=== PATIENT | male | born 1945 ===

== ENCOUNTER 2017-10-21 16:00 | Emergency (ER) | payer MEDICARE ==
[2017-10-21 16:28] VITALS: BP 163/75; PULSE 56; RESP 18; TEMP 98; O2SAT 99
--- NOTE | 2017-10-21 16:54 | ED PDOC ---
Syncope/Near Syncope/Dizziness Time Seen by Provider: 10/21/17 16:43 Chief Complaint (Nursing): Dizziness/Lightheaded Chief Complaint (Provider): Dizziness/Lightheaded History Per: Patient History/Exam Limitations: no limitations Onset/Duration Of Symptoms: Days Current Symptoms Are (Timing): Still Present Activity At Onset Of Symptoms: Had Just Stood up Additional Complaint(s): 72 y/o male with a PMHx of HTN and Type II Diabetes presents to the ED complaining of dizziness, onset 12 hours ago. Patient states he feels dizzy when he moves his and and when getting out of bed. Patient reports he was seen and admitted to [facility] for the same symptoms on 10/12/2017. MRI done at [facility] showed no acute findings. Carotid Dopler also done at [facility] showed normal results. Patient was seen by Dr. Mehta there and recommended to take Meclizine. Denies fever and vomiting. PMD: NIHSS Stroke Scale - Date/Time Evaluation Performed Date Performed: 10/21/17 Past Medical History Reviewed: Historical Data, Nursing Documentation, Vital Signs Vital Signs: Last Vital Signs Temp 98.0 F 10/21/17 16:24 Pulse 56 L 10/21/17 16:24 Resp 18 10/21/17 16:24 BP 163/75 H 10/21/17 16:24 Pulse Ox 99 10/21/17 16:24 - Medical History PMH: COPD, Diabetes, HTN - Surgical History Surgical History: No Surg Hx - Family History Family History: States: Unknown Family Hx - Social History Current smoker - smoking cessation education provided: No Ex-Smoker (has not smoked in the last 12 months): Yes (2 years ago) Alcohol: None Drugs: Denies - Immunization History Hx Influenza Vaccination: No Hx Pneumococcal Vaccination: No - Home Medications Home Medications: Ambulatory Orders Medication Instructions Recorded Glipizide [Glipizide Xl] 10 mg PO BID 10/21/17 Meclizine [Meclizine*] 25 mg PO Q6 PRN #10 tab 10/21/17 MetFORMIN [glucoPHAGE] 1,000 mg PO BID 10/21/17 Citra-3 Fatty Acids/Fish Oil [Fish 1 cap PO BID 10/21/17 Oil 1,000 mg Capsule] Pioglitazone [Actos] 15 mg PO MWF 10/21/17 Pravastatin Sodium [Pravachol] 80 mg PO HS 10/21/17 Valsartan [Diovan] 80 mg PO DAILY 10/21/17 - Allergies Allergies/Adverse Reactions: Allergies Allergy/AdvReac Type Severity Reaction Status Date / Time Penicillins Allergy Verified 01/27/17 10:32 Review of Systems ROS Statement: Except As Marked, All Systems Reviewed And Found Negative Constitutional: Negative for: Fever Gastrointestinal: Negative for: Vomiting Neurological: Positive for: Dizziness Physical Exam - Reviewed Nursing Documentation Reviewed: Yes Vital Signs Reviewed: Yes - Physical Exam Appears: Positive for: No Acute Distress Head Exam: Positive for: ATRAUMATIC, NORMAL INSPECTION, NORMOCEPHALIC Skin: Positive for: Normal Color, Warm Eye Exam: Positive for: EOMI, Normal appearance, PERRL Neck: Positive for: Normal, Painless ROM Cardiovascular/Chest: Positive for: Regular Rate, Rhythm Respiratory: Positive for: CNT, Normal Breath Sounds Gastrointestinal/Abdominal: Positive for: Normal Exam, Soft. Negative for: Tenderness Back: Positive for: Normal Inspection Extremity: Positive for: Normal ROM. Negative for: Deformity Neurologic/Psych: Positive for: Alert, Oriented, Gait (unsteady). Negative for : Motor/Sensory Deficits - Laboratory Results Result Diagrams: 10/21/17 17:05 10/21/17 17:05 - ECG O2 Sat by Pulse Oximetry: 99 (RA) Pulse Ox Interpretation: Normal Medical Decision Making Medical Decision Making: Time: 1654 Plan: -- CT Head w/o Contrast -- CMP -- CBC with differentials -- Glucose, POC Routine -- Meclizine 25 mg PO -- Urine C&S -- Urinalysis 17:[address] FINDINGS: HEMORRHAGE: No intracranial hemorrhage. BRAIN: Nagy-white matter differentiation is preserved. There is no mass, mass effect or abnormal extra-axial fluid collection. There is no territorial infarction. VENTRICLES: There is mild age-related global parenchymal volume loss and proportionate enlargement of the ventricles and cortical sulci. CALVARIUM: The skull base and calvarium are normal. PARANASAL SINUSES: There is mild mucosal thickening in the right maxillary sinus. The remaining included paranasal sinuses are predominantly clear. MASTOID AIR CELLS: Predominantly clear. OTHER FINDINGS: None. IMPRESSION: No acute intracranial abnormality. Mild age-related global parenchymal volume loss. 18:50 -Patient reports improvement of symptoms and states he wasn't taking Meclizine at home. Patient was diagnosed with vertigo on 10/12/17, he was admitted and had an MRI which was negative. -Dr. Mehta saw him but doesn't have Rx for meclizine, but now that he took it he feels normal. 19:00 -Discussed case with patient and family. Upon provider reevaluation patient is feeling better, is medically stable, and requires no further treatment in the ED at this time. Patient will be discharged home with Rx for Meclizine. Counseling was provided and all questions were answered regarding diagnosis and need for follow up with neurologist. There is agreement to discharge plan. Return if symptoms persist or worsen. Scribe Attestation: Documented by Sondra Huntley acting as a scribe for Dr. Cleopatra Sifuentes MD. Provider Scribe Attestation: All medical record entries made by the Scribe were at my direction and personally dictated by me. I have reviewed the chart and agree that the record accurately reflects my personal performance of the history, physical exam, medical decision making, and the department course for this patient. I have also personally directed, reviewed, and agree with the discharge instructions and disposition. Disposition - Clinical Impression Clinical Impression: Dizziness, Vertigo - Disposition Referrals: [facility] [Outside] Matt Mehta MD [Staff Provider] - Disposition: Routine/Home Disposition Time: 19:00 Condition: IMPROVED Additional Instructions: follow up with Dr mehta in 2 days return to the ED with any worsening or concerning symptoms Prescriptions: Meclizine [Meclizine*] 25 mg PO Q6 PRN #10 tab PRN Reason: Dizziness Instructions: Vertigo (a Type of Dizziness) (DC) Forms: [employer] [employer] ([place])
[2017-10-21 17:13] LABS: BASO # 0.1 K/uL (0.0-0.2); BASO % 0.9 % (0.0-2.0); EOS # 0.4 K/uL (0.0-0.7); EOS % 5.3 % (0.0-4.0); LYMPH # 3.2 K/uL (1.0-4.3); LYMPH % 46.5 % (20.0-40.0); MEAN CELL VOLUME 93.8 fl (80.0-94.0); MEAN CORPUSCULAR HEMOGLOBIN 32.1 pg (27.0-31.0); MEAN CORPUSCULAR HGB CONC 34.2 g/dL (33.0-37.0); MEAN PLATELET VOLUME 8.9 fl (7.2-11.7); MONO # 0.4 K/uL (0.0-0.8); MONO % 5.2 % (0.0-10.0); NEUT # 2.9 K/uL (1.8-7.0); NEUT % 42.1 % (50.0-75.0); NRBC % 0.1 % (0.0-0.0); RBC 4.36 Mil/uL (4.40-5.90); RED CELL DISTRIBUTION WIDTH 13.7 % (11.5-14.5)
--- NOTE | 2017-10-21 17:36 | CT ---
Date of service: 10/21/2017 PROCEDURE: CT HEAD WITHOUT CONTRAST. HISTORY: Headaches COMPARISON: None available. TECHNIQUE: Axial computed tomography images were obtained through the head/brain without intravenous contrast. Radiation dose: Total exam DLP = 931.30 mGy-cm. This CT exam was performed using one or more of the following dose reduction techniques: Automated exposure control, adjustment of the mA and/or kV according to patient size, and/or use of iterative reconstruction technique. FINDINGS: HEMORRHAGE: No intracranial hemorrhage. BRAIN: Nagy-white matter differentiation is preserved. There is no mass, mass effect or abnormal extra-axial fluid collection. There is no territorial infarction. VENTRICLES: There is mild age-related global parenchymal volume loss and proportionate enlargement of the ventricles and cortical sulci. CALVARIUM: The skull base and calvarium are normal. PARANASAL SINUSES: There is mild mucosal thickening in the right maxillary sinus. The remaining included paranasal sinuses are predominantly clear. MASTOID AIR CELLS: Predominantly clear. OTHER FINDINGS: None. IMPRESSION: No acute intracranial abnormality. Mild age-related global parenchymal volume loss.
[2017-10-21 17:39] LABS: ALB/GLOB RATIO 1.4 (1.0-2.1); ALBUMIN 4.3 g/dL (3.5-5.0); ALT/SGPT 35 U/L (21-72); AST/SGOT 37 U/L (17-59); BLOOD UREA NITROGEN 22 mg/dl (9-20); CALCIUM 9.7 mg/dL (8.4-10.2); GFR AFRICAN-AMERICAN > 60; GFR NON-AFRICAN AMERICAN > 60
[2017-10-21 17:53] LABS: SQUAMOUS EPITHIAL < 1 /hpf (0-5); URINE BILIRUBIN NEGATIVE (NEGATIVE); URINE BLOOD NEGATIVE (NEGATIVE); URINE CLARITY CLEAR (Clear); URINE COLOR YELLOW (YELLOW); URINE GLUCOSE (UA) >=500 mg/dL (Normal); URINE LEUKOCYTE ESTERASE NEG Leu/uL (Negative); URINE PROTEIN NEGATIVE (NEGATIVE); URINE UROBILINOGEN 0.2-1.0 mg/dL (0.2-1.0)
== END 2017-10-21 19:50 | disposition home or self-care (01) ==
LOC: H.ER 16:00
DX: R42 Dizziness and giddiness (principal); E11.9 Type 2 diabetes mellitus without complications; Z88.0 Allergy status to penicillin; I10 Essential (primary) hypertension; Z79.84 Long term (current) use of oral hypoglycemic drugs